=== PATIENT | female | born 1980 | race Caucasian/White ===

== ENCOUNTER 2016-10-07 21:02 | Emergency (ER) | payer OTHER ==
[~2016-10-07] VITALS: Ht 152.4 cm; Wt 55.3 kg
--- NOTE | 2016-10-07 21:38 | NUR ---
DR ARNDT AT BEDSIDE FOR MSE
[2016-10-07] MEDS ORDERED: IV NORMAL SALINE 1000 ML BAG IV ONE (21:45)
[2016-10-07] MEDS ORDERED: KETOROLAC TROMETHAMINE 15 MG INJ IV ONE (21:45)
[2016-10-07 21:57] LABS: *BILIRUBIN,URIN NEGATIVE (NEGATIVE); *BLOOD, URINE 3+ (NEGATIVE); *CLARITY,URINE CLEAR (CLEAR); *COLOR,URINE YELLOW (YELLOW); *KETONES,URINE NEGATIVE (NEGATIVE); *PROTEIN,URINE NEGATIVE (NEGATIVE); *UROBILINOGEN,URINE 0.2 E.U./dl (NORMAL); LEUKOCYTE ESTERASE ,URINE NEGATIVE (NEGATIVE); NITRITE, URINE NEGATIVE (NEGATIVE); UGLUCOSE NEGATIVE (NEGATIVE)
[2016-10-07 22:03] LABS: *URINE HCG, QUAL NEGATIVE (NEGATIVE)
[2016-10-07 22:10] LABS: BASOPHILS # (AUTO) 0.1 K/uL (0.0-8.0); BASOPHILS % (AUTO) 0.5 % (0.0-2.0); EOSINOPHILS # (AUTO) 0.1 K/uL (0.0-0.7); EOSINOPHILS % (AUTO) 0.7 % (0.0-7.0); HEMATOCRIT 39.7 % (37-47); HEMOGLOBIN 13.3 G/DL (12.0-16.0); LYMPHOCYTES # (AUTO) 2.3 K/UL (0.8-4.8); LYMPHOCYTES % (AUTO) 20.2 % (20.5-51.5); MEAN CORPUSCULAR HEMOGLOBIN 27.7 UUG (27.0-31.0); MEAN CORPUSCULAR HGB CONC 34 g/dL (32.0-37.0); MEAN CORPUSCULAR VOLUME 82.6 FL (81.0-99.0); MONOCYTES # (AUTO) 0.5 K/UL (0.1-1.30); MONOCYTES % (AUTO) 4.2 % (0.0-11.0); NEUTROPHILS # (AUTO) 8.2 K/UL (1.8-8.9); NEUTROPHILS % (AUTO) 74.4 % (38.5-71.5); PLATELET COUNT (AUTO) 209 K/UL (150-450); RED CELL DISTRIBUTION WIDTH 12.2 % (11.5-14.5); WHITE BLOOD COUNT (AUTO) 11.3 K/UL (4.0-11.2)
[2016-10-07 22:10] LABS: SQUAMOUS EPITHELIAL CELL,UR FEW /HPF (NONE SEEN); WBC,URINE 0-3 /HPF (0-3)
[2016-10-07 22:17] LABS: CALCIUM 8.9 mg/dL (8.5-10.1); CARBON DIOXIDE 26 mmol/L (21-32); CHLORIDE 104 mmol/L (98-107); CREATININE 0.8 mg/dL (0.6-1.3); GFR 82 mL/min (>60); GLUCOSE 92 mg/dL (74-106); POTASSIUM 3.9 mmol/L (3.5-5.1); SODIUM SERUM 138 mmol/L (136-145); UREA NITROGEN, BLOOD 12 mg/dL (7-18)
[2016-10-07] MEDS ORDERED: KETOROLAC TROMETHAMINE 15 MG INJ ONE (22:17)
[2016-10-07 22:22] LABS: ALANINE AMINOTRANSFERASE 37 U/L (14-59); ALBUMIN 3.9 g/dL (3.4-5.0); ALKALINE PHOSPHATASE 87 U/L (50-136); ASPARTATE AMINOTRANSFERASE 27 U/L (15-37); BILIRUBIN,DIRECT < 0.1 mg/dL (0.0-0.2); BILIRUBIN,TOTAL 0.2 mg/dL (0.2-1.0); LIPASE 102 U/L (73-393); TOTAL PROTEIN, SERUM 7.7 g/dL (6.4-8.2)
--- NOTE | 2016-10-07 22:35 | NUR ---
PT TO CT SCAN WITH BACKREST ASSEMBLER
--- NOTE | 2016-10-07 22:51 | NUR ---
PT IS BACK FROM CT; NAD
[2016-10-07] MEDS ORDERED: TAMSULOSIN HCL 0.4 MG CAP.SR.24H PO STA (23:13)
[2016-10-07] MEDS ORDERED: ONDANSETRON IV *ER 4 MG/2 ML VIAL IV ONE (23:15)
[2016-10-07] MEDS ORDERED: MORPHINE SULFATE 4 MG/1 ML DISP.SYRIN IV ONE (23:15)
[2016-10-07] MEDS ORDERED: ONDANSETRON 4 MG/2 ML VIAL ONE (23:23)
[2016-10-07] MEDS ORDERED: MORPHINE SULFATE 4 MG/1 ML DISP.SYRIN ONE (23:23)
[2016-10-07] MEDS ORDERED: TAMSULOSIN HCL 0.4 MG CAP.SR.24H ONE (23:35)
[2016-10-08 00:38] VITALS: BP 122/80
--- NOTE | 2016-10-08 00:39 | NUR ---
Patient discharged to home in stable conditon. Written and verbal after care instructions given. IV DC'D AND DRESSING APPLIED. PT ADVISED TO FOLLOW UP WITH PMD AND TO RETURN TO THE ED IF CONDITION WORSENS. Patient verbalizes understanding of instructions.
== END 2016-10-08 00:48 | disposition home or self-care (01) ==
LOC: ER 21:04
DX: N20.1 Calculus of ureter (principal)
CPT/HCPCS: 36415; 83690; 84703; 85025; A4663; J1885; J2270; J2405; J7030